=== PATIENT | female | born 1995 | race Caucasian/White ===

== ENCOUNTER 2016-05-25 22:47 | Observation (INO) ==
[2016-05-25 23:24] LABS: Bilirubin,Urine Negative (Negative); Blood,Urine Negative (Negative); Clarity,Urine Clear (Clear); Color,Urine Yellow (Yellow); Glucose,Urine (UA) Normal (Normal); Ketones,Urine Negative (Negative); Leukocyte Esterase,Urine Trace (Negative); Nitrite,Urine Negative (Negative); PH,Urine 6.5 pH Units (5.0-8.0); Protein,Urine 100 mg/dL (Neg-Trace); Urobilinogen,Urine Normal (Normal)
[2016-05-25 23:25] LABS: Bacteria,Urine Few per hpf (None-Few); Hyaline Casts,Urine None Seen per lpf (None-Few); Squamous Epithelial Cell,Urine Many per lpf (None-Few)
--- NOTE | 2016-05-30 15:23 | Discharge Summary ---
Date of Encounter: 05/25/16 Time of Encounter: 22:45 - Discharge Diagnosis (1) False labor before 37 completed weeks of gestation Priority: Primary Status: Ruled-out Qualifiers: Trimester: third trimester Qualified Code(s): O47.03 - False labor before 37 completed weeks of gestation, third trimester (2) 36 weeks gestation of Priority: Secondary Status: Acute - Discharge Medications Home Medications: Vit Calc,Iron,Folic [ Vitamins] 1 each PO DAILY #30 tablet [Rx] Ibuprofen [Motrin] 600 mg PO Q6HR PRN #40 tablet 05/27/16 [Rx] Allergies/Adverse Reactions: Allergies azithromycin [From Zithromax] Allergy (Verified 05/25/16 22:56) Rash Data Procedures and tests throughout hospitalization: Laboratory Tests 05/25/16 23:10 Urine Color Yellow Urine Clarity Clear Urine pH 6.5 Ur Specific [place] 1.020 Urine Protein 100 H Urine Glucose (UA) Normal Urine Ketones Negative Urine Blood Negative Urine Nitrite Negative Urine Bilirubin Negative Urine Urobilinogen Normal Ur Leukocyte Esterase Trace H Urine Microscopic RBC 5-15 H Urine Microscopic WBC 5-15 H Ur Squamous Epith Cells Many H Urine Bacteria Few Hyaline Casts None Seen Ur Culture Indicated? YES A Date of admission: 05/25/16 22:47 Primary care physician: Ricardo Beauchamp - Patient Status Disposition: Home, Self-Care Condition: Good Functional capacity at discharge: independent ambulation Overall status at discharge: patient is progressing back to baseline - Discharge Instructions Follow Up With: Calvin Chung DO [Primary Care Provider] - - Diet and Activity Activity: increase activity as tolerated Diet: advance to your usual diet Hospital Course ATMOSPHERIC DRIER TENDER Time Attestation: Total time spent providing and/or coordinating discharge services: Exam - Constitutional Vitals: per nurses - VTE Reasons for not Prescribing Prophylaxis: Treatment not Indicated - Low risk for VTE - Attending Attestation dmitriy regan md facog
== END 2016-05-26 00:19 | disposition home or self-care (01) ==
LOC: 1NENULAB
PROVIDERS: ADMIT Obstetrics & Gynecology; ATTEND Obstetrics & Gynecology

== ENCOUNTER 2016-05-26 14:07 | Inpatient (IN) ==
[~2016-05-26 14:07] MED LIST: Famotidine 20 MG/2 ML VIAL IVP PRN; Naloxone 0.4 MG/ML INJ IVP PRN; Ondansetron 4 MG/2 ML VIAL IVP PRN
[2016-05-26] MEDS ORDERED: *HR* Nalbuphine 20 MG/ML AMPUL IVP PRN ×2 (14:09→16:50)
--- NOTE | 2016-05-26 14:17 | OB/GYN History & Physical ---
Date of Encounter: 05/26/16 Time of Encounter: 14:11 Assessment and Plan (1) Rupture of membranes with clear amniotic fluid Current visit: Yes Status: Acute - Monitor normal labor progression. (2) 36 weeks gestation of Current visit: Yes Status: Acute History of Present Illness HPI: Ms. Piña is a 20 year old female who is at 36 weeks and 5 days presenting for possible rupture of membranes today around 11:00. She is GBS negative. She denies any complications. She was evaluated here last night and found to have not ruptured. She states today she got out of bed and had a large gush of fluid around 11 AM. She has had contractions approximately every 5-8 minutes that lasts about a minute and a half since this episode at 11. Today her ferning test is positive as is the nitrazine test. She does have pooling of fluid that is slightly blood tinged but mostly clear in her vaginal vault. Past Med Surg Social Fam HX - Past Medical History Source: patient Medical history: no medical history Psychiatric history: no psych history - Past Surgical History Surgical History: other (tonsils) - Social History Smoking Status: Former smoker Smokeless Tobacco Status: No Alcohol use: none Drug use: none - Family History Mother Adopted: No Living Status: Still Living Hx Family Cardiac Disorders: Yes (HTN) Hx Family Respiratory Disorders: Yes (ARDS,) Hx Family Cancer: Yes (jawbone CA) Obstetrical History - Pregnancies : 1 Para: 0 Medications and Allergies Vit Calc,Iron,Folic [ Vitamins] 1 each PO DAILY #30 tablet [Rx] Allergies azithromycin [From Zithromax] Allergy (Verified 05/25/16 22:56) Rash Review of System OB All systems PM: reviewed and no additional remarkable complaints except as stated - Constitutional Constitutional ROS IM: no chills, no fever(s), no headache(s) - Cardiovascular Cardiovascular: pedal edema (Mild after standing during the day.), no chest pain , no chest pain at rest, no chest pain with activity, no dyspnea, no lightheadedness, no syncope - Respiratory Respiratory: no cough, no dyspnea, no chest congestion - Gastrointestinal Gastrointestinal: no abdominal pain, no constipation, no cramping, no diarrhea, no nausea, no vomiting - Genitourinary Genitourinary: amenorrhea, vaginal discharge (Clear fluid), no difficulty urinating, no flank pain, no vaginal odor - Integumentary Integumentary: no rash - Neurological Nerological: no dizziness, no headache(s), no loss of vision, no syncope, no vertigo Exam - Constitutional Constitutional: well developed, well nourished, no acute distress, average body habitus - HEENT HEENT: PERRL, Normocephaly, Mucus Membranes Moist - Neck Neck exam: full ROM, trachea midline - Lungs Respiratory exam: CTAB - Cardiovascular Cardiovascular exam: RRR - Abdomen Abdomen: Present: bowel sounds normal, gravid, non tender - Extremities Extremities exam: normal capillary refill, pedal edema (Moderate) Deep Tendon Reflex Grade: 2+ Normal - Vagina Vagina: Present: normal moisture - Cervix Cervix: Present: discharge (Clear with slight blood-tinged.). Absent: lesion Dilation: 3 Effacement: 70 Station: -2 - Uterus Uterus exam: Present: normal size, normal contour - Anus/Rectum Anus/Rectum: Present: normal perianal skin Results Result Diagrams: 05/26/16 14:25 05/26/16 14:25 All other labs normal. - VTE Reasons for not Prescribing Prophylaxis: Treatment not Indicated - Low risk for VTE - Attending Attestation I examined this patient and my medical decision-making was reviewed with the Resident Physician. I agree with the documented findings, disposition and treatment plan as described except and have included my edits in the above document. Roma Be DO
[2016-05-26 14:47] LABS: Basophils % 0.2 %; Eosinophils # 0.2 K/mcL (0.0-0.6); Eosinophils % 1.5 %; Hematocrit 39.6 % (35.3-44.9); Hemoglobin 13.5 g/dL (11.5-15.4); Immature Granulocytes % 0.5 % (0-4); Lymphocytes # 1.2 K/mcL (0.6-4.6); Lymphocytes % 7.9 %; Mean Corpuscular HGB Conc 34.1 g/dL (31.6-35.5); Mean Corpuscular Hemoglobin 30.1 pg (28.0-33.3); Mean Corpuscular Volume 88.4 fL (83.0-100.0); Mean Platelet Volume 10.5 fL (9.4-12.4); Monocytes % 6.5 %; Neutrophils # 12.7 K/mcL (1.6-8.9); Platelet Count 267 K/mcL (140-400); Red Blood Count 4.48 M/mcL (3.82-4.97); Red Cell Distribution Width 13.6 % (11.5-14.5); Segmented Neutrophils % 83.4 %
[2016-05-26 14:59] LABS: Alanine Aminotransferase 24 Units/L (0-55); Aspartate Amino Transferase 28 Units/L (5-34); BUN/Creatinine Ratio 12 (6-26); Blood Urea Nitrogen 8 mg/dL (7-20); Lactate Dehydrogenase 207 Units/L (159-327); Uric Acid 6.4 mg/dL (2.6-6.0); eGFR For African Americans > 60 (> 60); eGFR For Non-African Americans > 60 (> 60)
[2016-05-26] MEDS ORDERED: miSOPROStol 25 MCG TABLET PO PRN (15:13)
[2016-05-26] MEDS: Ringers Solution, Lactated 1,000 ML IVC SCH ×2 (18:28→20:39)
--- NOTE | 2016-05-26 18:33 | Anesthesia Evaluation PreOp ---
Date of Encounter: 05/26/16 Time of Encounter: 18:30 - Past History Planned Operation: labor epidural Cardiac History: Denies any Significant Hx Pulmonary History: Denies Any Significant HX BLACKJACK DEALER History: Denies Any Significant HX Other Medical History: Denies Any Significant HX Anesthesia History: No Prior Anesthetic Complications, Past Anesthesia (T&A) : Yes Alcohol Use: none Drug use: none Medications and Allergies Vit Calc,Iron,Folic [ Vitamins] 1 each PO DAILY #30 tablet [Rx] Allergies azithromycin [From Zithromax] Allergy (Verified 05/25/16 22:56) Rash - Meds/Allergy Pre-op Review Medications Reviewed: Yes Allergies Reviewed: Yes Beta Blockers on Current Med List: No Anesthesia Results - Labs 05/26/16 14:25 05/26/16 14:25 Anesthesia Exam vss Height: 5'4" Weight: 103 kg NPO (# of Hours): 8 Pain Scale: 10 Pain Scale Used: Numeric (1 - 10) - HEENT Pupil (Motor): Pupils equal, EOMI Mallampati: III Teeth: Normal Oral Opening: Greater than 3 - BLACKJACK DEALER LOC: Oriented BLACKJACK DEALER Motor: Normal RUE, Normal LUE, Normal RLE, Normal LLE, Normal Face BLACKJACK DEALER Sensory: Normal: RUE, LUE, RLE, LLE, Face - Cardiac Rhythm: Regular Murmur: None - Pulmonary Breath Sounds: bilateral Clear Respiratory Effort: Symmetrical Anesthesia Assess/Plan ASA Score: 2 Modified Escobar Scale for Level of Consciousness: Cooperative, oriented, and tranquil Anesthetic Plan: Regional Monitoring Plan: Standard Monitors
[2016-05-26] MEDS ORDERED: Bupivacaine-MPF 0.25% 10 ML VIAL EP ONE (18:40)
[2016-05-26] MEDS ORDERED: *HR* FentaNYL (PF) 100 MCG/2 ML VIAL EP ONE (18:40)
[2016-05-26] MEDS ORDERED: Epidural Premix (fent/bupiv) 110 ML EP ONE (18:43)
[2016-05-26] MEDS ORDERED: *HR* FentaNYL (PF) 100 MCG/2 ML VIAL ONE (18:43)
[2016-05-26] MEDS ORDERED: Bupivacaine-MPF 0.25% 10 ML VIAL ONE (18:43)
[2016-05-26] MEDS ORDERED: Epidural Premix (fent/bupiv) 110 ML EP SCH (18:45)
--- NOTE | 2016-05-26 19:46 | Anesthesia Procedures ---
Date of Encounter: 05/26/16 Time of Encounter: 19:08 Procedures: Anesthesia - Epidural/Spinal Patient ID/Chart reviewed: Yes Patient examined: Yes OB Eval: Gestational age: 36 OB Eval: : 1 OB Eval: Hx Para: 0 OB Eval: Dilated at (cm): 4 OB Eval: Contractions: Non-stressed pattern Consent Obtained: Yes Supplemental Oxygen: None/Room Air Site Prep: Aseptic Technique, Sterile prep and drape, Povidone-Iodine 1% Patient position: upright Local Anesthetic: Lidocaine 1% Amount of Local Anesthetic used: 3 Touhy Needle Gauge: 18 Touhy Needle Depth (cm): 6 Catheter Depth at Skin (cm): 18 Test Dose (1.5% Lido + Epi): Volume given (mls): 3 Test Dose Result: Negative Loading Dose: 0.25% Marcaine (mls): 8 Loading Dose: Fentanyl (mcg): 100 Loading Dose Administered: Thru Catheter Infusion Med: 0.125% Bupivacaine w/ 2 mcg/ml Fentanyl Infusion Rate (mls/hr): [address]: Tegaderm, Tape Interspace Used: L3-L4 Loss of Resistance (SHAYY): Yes Blood: No CSF: No Paresthesia: No Vitals + FHT's: 3 Vital Signs Time 1909 1914 1919 1924 1929 1934 1939 BP 142/80 198/105 196/84 162/71 165/73 145/64 148/63 Pulse 128 144 151 150 140 [id number] 147 FHTs 130 130 130 130 130 140 140
[2016-05-26] MEDS ORDERED: Acetaminophen 325 MG TABLET PO ONE (20:08)
--- NOTE | 2016-05-26 20:32 | OB/GYN Progress Note ---
Date of Encounter: 05/26/16 Time of Encounter: 20:28 - Assessment and Plan (1) tachycardia during labor Current Visit: Yes Status: Acute Maternal tachycardia also. Maternal temp is 99. Tylenol has been ordered. Patient currently SROM for 9.5 hours. No sign of infection. Maternal O2 supplied and fluid bolus. FSE placed without difficulty because maternal pulse was also 160 initially following the epidural. Continue with close monitoring in anticipation of a vaginal delivery. Subjective - Subjective Interval history: Patient is now comfortable, but anxious after the epidural. She denies any chills or pain at this time. Antepartum ROS: movement normal, no new complaints Objective - Vital Signs Vital Signs: Intake and Output 05/26/16 05/26/16 05/26/16 07:59 15:59 23:59 Output Total 75 / 75 Balance -75 / -75 Output: Emesis 75 / 75 Other: Weight 103.1 kg Patient Weight 05/26/16 23:59 Weight 103.1 kg - Exam FHR: category 2 FHR comments: FHT's baseline is currenlty 162 with 10x10 accel @2023. Contractions irregular. Abdomen: Present: soft. Absent: tenderness Cervical dilation: 8 Cervix effacement: 90 station: -1 - Labs Labs: Abnormal lab results WBC 15.2 K/mcL (4.3-11.1) H 05/26/16 14:25 Neutrophils # 12.7 K/mcL (1.6-8.9) H 05/26/16 14:25 Uric Acid 6.4 mg/dL (2.6-6.0) H 05/26/16 14:25
[2016-05-26] MEDS ORDERED: Oxytocin 20 units/ LR 1000 mL 20 UNIT/1,000 ML BAG IVC ONE (21:45)
--- NOTE | 2016-05-26 22:57 | OB/GYN Procedure Note ---
Delivery - Delivery Date: 05/26/16 Provider: Roma Be Intrapartum events: none Delivery induction: none Delivery monitor: external FHT, external uterine, internal FHT Anesthesia: epidural Estimated Blood Loss: 450 - (s) A Delivery Date: 05/26/16 Infant Delivery Time: 22:39 Presentation: vertex Position: MAUREEN Route of delivery: Gender: Female Viability: Viable Pounds: 6 Ounces: 14 Weight Gram: 3.105 kg at 1 minute: 8 at 5 mins: 9 Shoulder Dystocia: not encountered Specimens collected: cord blood Placenta: spontaneous Cord: nuchal cord, 3 umbilical vessels, nuchal reduced - Repair Episiotomy: none Laceration Description: Perineal - 2nd Degree - Complications Delivery complications: other (category 2 tracing, tachycardia) Delivery comments: Called to room with patient complete and +1 station. Under maternal effort she delivered a viable female weighing 6 lbs. 14 oz. and Apgars 8 and 9 at one and 5 minutes respectively over second-degree perineal laceration. Following delivery the was bulb suctioned. Loose nuchal cord was noted and reduced. The remainder of the delivered with maternal effort. Infant was placed on mom's abdomen. Allowing 1 minute cessation the cord was then clamped and cut. Placenta delivered spontaneously, complete, and intact with a three-vessel cord. Second-degree perineal laceration was repaired using 0 Vicryl in standard fashion. Hemostasis was assured. Sponge and needle counts are correct at the end of the procedure. Delivering physician is Iona Quiroga DO, PGY [address] assisting. - Disposition Mom disposition: stable in LDR disposition: stable in LDR
[2016-05-27] MEDS ORDERED: Oxytocin 20 units/ LR 1000 mL 20 UNIT/1,000 ML BAG IVC ONE ×2 (01:17→01:37)
[2016-05-27] MEDS ORDERED: Acetaminophen 325 MG TABLET PO PRN (01:37)
[2016-05-27] MEDS ORDERED: Oxytocin 20 units/ LR 1000 mL 20 UNIT/1,000 ML BAG IV SCH (01:37)
[2016-05-27] MEDS: Ibuprofen 600 MG TABLET PO PRN ×2 (02:46→20:05)
[2016-05-27 06:10] LABS: Basophils % 0.1 %; Hematocrit 32.5 % (35.3-44.9); Immature Granulocytes % 0.7 % (0-4); Lymphocytes % 4.6 %; Mean Corpuscular HGB Conc 32.9 g/dL (31.6-35.5); Mean Corpuscular Hemoglobin 29.6 pg (28.0-33.3); Mean Corpuscular Volume 89.8 fL (83.0-100.0); Mean Platelet Volume 10.6 fL (9.4-12.4); Monocytes # 1.3 K/mcL (0.0-1.3); Monocytes % 6.5 %; Neutrophils # 18.2 K/mcL (1.6-8.9); Platelet Count 224 K/mcL (140-400); Red Blood Count 3.62 M/mcL (3.82-4.97); Red Cell Distribution Width 13.7 % (11.5-14.5); Segmented Neutrophils % 88.1 %
[2016-05-27 06:30] LABS: Hemoglobin 10.7 g/dL (11.5-15.4)
[2016-05-27] MEDS: Prenatal Vit/FA 1 EACH TABLET PO SCH (07:53)
[2016-05-27] MEDS ORDERED: ceFAZolin 2,000 MG in D5% in Water 100 ML IVPB SCH ×2 (08:00)
--- NOTE | 2016-05-27 10:52 | Discharge Summary ---
Date of Encounter: 05/27/16 Time of Encounter: 10:51 - Discharge Diagnosis (1) Vaginal discharge during in third trimester Priority: Primary Status: Acute Comments: Doing well, had fever shortly after delivery, this has since resolved. - Discharge Medications Prescriptions: Ibuprofen [Motrin] 600 mg PO Q6HR PRN #40 tablet PRN Reason: Cramping Home Medications: Vit Calc,Iron,Folic [ Vitamins] 1 each PO DAILY #30 tablet [Rx] Ibuprofen [Motrin] 600 mg PO Q6HR PRN #40 tablet 05/27/16 [Rx] Allergies/Adverse Reactions: Allergies azithromycin [From Zithromax] Allergy (Verified 05/25/16 22:56) Rash Data Procedures and tests throughout hospitalization: Laboratory Tests 05/26/16 05/26/16 05/27/16 14:25 14:25 05:11 WBC 15.2 H 20.7 H RBC 4.48 3.62 L Hgb 13.5 10.7 L D Hct 39.6 32.5 L MCV 88.4 89.8 MCH 30.1 29.6 MCHC 34.1 32.9 RDW 13.6 13.7 Plt Count 267 224 MPV 10.5 10.6 Immature Gran % 0.5 0.7 Seg Neutrophils % 83.4 88.1 Lymphocytes % 7.9 4.6 Monocytes % 6.5 6.5 Eosinophils % 1.5 0.0 Basophils % 0.2 0.1 Neutrophils # 12.7 H 18.2 H Lymphocytes # 1.2 1.0 Monocytes # 1.0 1.3 Eosinophils # 0.2 0.0 Basophils # 0.0 0.0 BUN 8 Creatinine 0.65 Est GFR ( Amer) > 60 Est GFR (Non-Af Amer) > 60 BUN/Creatinine Ratio 12 Uric Acid 6.4 H AST 28 ALT 24 Lactate Dehydrogenase 207 Labs on day of discharge: Labs from last 24 hours 05/27/16 05/26/16 05/26/16 05:11 14:25 14:25 WBC 20.7 H 15.2 H RBC 3.62 L 4.48 Hgb 10.7 L D 13.5 Hct 32.5 L 39.6 MCV 89.8 88.4 MCH 29.6 30.1 MCHC 32.9 34.1 RDW 13.7 13.6 Plt Count 224 267 MPV 10.6 10.5 Immature Gran % 0.7 0.5 Seg Neutrophils % 88.1 83.4 Lymphocytes % 4.6 7.9 Monocytes % 6.5 6.5 Eosinophils % 0.0 1.5 Basophils % 0.1 0.2 Neutrophils # 18.2 H 12.7 H Lymphocytes # 1.0 1.2 Monocytes # 1.3 1.0 Eosinophils # 0.0 0.2 Basophils # 0.0 0.0 BUN 8 Creatinine 0.65 Est GFR ( Amer) > 60 Est GFR (Non-Af Amer) > 60 BUN/Creatinine Ratio 12 Uric Acid 6.4 H AST 28 ALT 24 Lactate Dehydrogenase 207 - Impressions Doing well, without c/o. Abd NT, fundus firm. Appropriate lochia. Date of admission: 05/26/16 14:07 Primary care physician: Ricardo Beauchamp Consults: 05/27/16 01:37 Consult to Home School Teacher [CONS] Routine Comment: Vaginal delivery, consult needed - Patient Status Disposition: Home, Self-Care Condition: Good Functional capacity at discharge: independent ambulation - Discharge Instructions Follow Up With: Eduardo Yepez MD [Partnered Physician] - - Diet and Activity Activity: increase activity as tolerated Diet: advance to your usual diet Hospital Course APPLICATION SECURITY ENGINEER Time Attestation: Total time spent providing and/or coordinating discharge services: Exam - Constitutional Vitals: Temp Pulse Resp BP Pulse Ox 97.7 F 104 16 132/76 98 05/27/16 08:10 05/27/16 08:10 05/27/16 08:10 05/27/16 08:10 05/27/16 08:10 General appearance IM: A&O X 3 - Respiratory Respiratory exam: Present: CTAB - Cardiovascular Cardiovascular exam IM: Present: RRR - GI/Abdominal GI/Abdominal exam IM: normal bowel sounds - External exam: ecchymosis Uterine Tone: Firm Uterus Position: 3 Fingers Above Umbilicus - Extremities Exam Extremities exam IM: Present: full ROM - Neurological Exam Neurological exam: oriented X3 - VTE Reasons for not Prescribing Prophylaxis: Treatment not Indicated - Low risk for VTE
[2016-05-28] MEDS: Prenatal Vit/FA 1 EACH TABLET PO SCH (08:14)
[2016-05-28] MEDS: Ibuprofen 600 MG TABLET PO PRN (08:14)
[2016-05-28 09:32] VITALS: BP 120/67
--- NOTE | 2016-05-28 09:57 | Discharge Summary ---
Date of Encounter: 05/28/16 Time of Encounter: 09:55 - Discharge Diagnosis (1) Rupture of membranes with clear amniotic fluid Priority: Primary Status: Acute (2) 36 weeks gestation of Priority: Secondary Status: Acute (3) Vaginal delivery Priority: Primary Status: Acute - Discharge Medications Prescriptions: Ibuprofen [Motrin] 600 mg PO Q6HR PRN #40 tablet PRN Reason: Cramping Home Medications: Vit Calc,Iron,Folic [ Vitamins] 1 each PO DAILY #30 tablet [Rx] Ibuprofen [Motrin] 600 mg PO Q6HR PRN #40 tablet 05/27/16 [Rx] Allergies/Adverse Reactions: Allergies azithromycin [From Zithromax] Allergy (Verified 05/25/16 22:56) Rash Data Procedures and tests throughout hospitalization: Laboratory Tests 05/26/16 05/26/16 05/27/16 14:25 14:25 05:11 WBC 15.2 H 20.7 H RBC 4.48 3.62 L Hgb 13.5 10.7 L D Hct 39.6 32.5 L MCV 88.4 89.8 MCH 30.1 29.6 MCHC 34.1 32.9 RDW 13.6 13.7 Plt Count 267 224 MPV 10.5 10.6 Immature Gran % 0.5 0.7 Seg Neutrophils % 83.4 88.1 Lymphocytes % 7.9 4.6 Monocytes % 6.5 6.5 Eosinophils % 1.5 0.0 Basophils % 0.2 0.1 Neutrophils # 12.7 H 18.2 H Lymphocytes # 1.2 1.0 Monocytes # 1.0 1.3 Eosinophils # 0.2 0.0 Basophils # 0.0 0.0 BUN 8 Creatinine 0.65 Est GFR ( Amer) > 60 Est GFR (Non-Af Amer) > 60 BUN/Creatinine Ratio 12 Uric Acid 6.4 H AST 28 ALT 24 Lactate Dehydrogenase 207 Labs on day of discharge: Preliminary micro results at discharge 05/26/16 23:00 Wound Culture - Preliminary Other-Specify in Comments No growth. Date of admission: 05/26/16 14:07 Primary care physician: Ricardo Beauchamp Consults: 05/27/16 01:37 Consult to Stock Buyer [CONS] Routine Comment: Vaginal delivery, consult needed Discharging clinician: Roma Be Anticipated date of discharge: 05/28/16 - Patient Status Disposition: Home, Self-Care Condition: Good Functional capacity at discharge: independent ambulation Overall status at discharge: patient is progressing back to baseline - Discharge Instructions Follow Up With: Eduardo Yepez MD [Partnered Physician] - Additional Instructions: Perineal Care: Always wipe front to back Change your pad frequently Use your linnea bottle with warm water and spray front to back Do not douche, use tampons, have sexual intercourse or put anything in your vagina for 4-6 weeks after delivery Bleeding: Vaginal bleeding can last up to 6 weeks Your menstrual period may return as early as 6 weeks after you are discharged from the hospital Ronald/Stitches Care: Vaginal Delivery Vaginal stitches will dissolve within 4-6 weeks Follow perineal care instructions Care Stitches will dissolve on their own If you have ronald, they will need to be removed in the doctors office within 5-7 days. You may shower with stitches or ronald Drip plan or soapy water over the incision to clean. Pat dry gently with a clean towel. Make sure you completely dry under the skin folds DO NOT USE powders, lotions, rubbing alcohol or hydrogen peroxide on or around your incision. This will slow your wound healing It is normal to have soreness, burning, tingling, itchiness and/or numbness as your incision heals Activity: Rest frequently Do not lift anything heavier than a gallon of milk, up to 10-15 pounds No driving for 1-2 weeks for Vaginal delivery No driving for 2-4 weeks for delivery Take stairs slowly, one at a time Gradually increase your daily activity until you are back to your normal routine Do not exercise until you have had your follow-up appointment Bathing: Take a shower daily Do not take a tub bath for the first 4 weeks Diet: Drink plenty of water and fruit juices Eat a well-balanced diet with foods high in fiber such as fruits and vegetables Depression: Your hormones have a major impact on your feelings and emotions. Hormone imbalance may cause changes in your mood, creating unfamiliar thoughts and actions. Support is available to help you understand and cope with these feelings and mood changes. If you answer yes to any of the following questions, please call your health care provider: Are you having trouble sleeping? Are you feeling isolated? Have you lost your appetite? Are you having thoughts of hurting yourself or others? WARNING SIGNS: Heavy bleeding from the vagina (blood is bright red and soaks a sanitary pad in an hour or less.) Passing a blood clot larger than your fist Discharge from the vagina that has a bad odor Temperature over 100.4 F, or if you feel cold and have chills An episiotomy site that is warm, swollen or oozing. Use a mirror if needed Urination (pee) that is painful, very red and swollen or leaking fluid An incision that is painful, very red and swollen and leaking fluid An incision that has come open Breasts that are painful or full with flu like symptoms Redness, warmth or swelling in the calf of your leg Trouble breathing, dizziness, visual disturbance or faintness *Notify your health care provider immediately or go to the nearest Emergency Room if you experience any of the above signs.* To contact the nurses station 24 hours a day, For non-urgent, routine questions, please call the office at - Diet and Activity Activity: increase activity as tolerated Diet: advance to your usual diet Hospital Course Reason for admission: active labor, rupture of membranes Delivery: Episiotomy: none Other procedures: none complications: none Discharge diagnosis: delivery baby: female Time Attestation: Total time spent providing and/or coordinating discharge services: Time Spent: Less than 30 minutes Exam - Constitutional Vitals: Temp Pulse Resp BP Pulse Ox 98.5 F 132 16 120/67 98 05/28/16 09:40 05/28/16 08:00 05/28/16 08:00 05/28/16 08:00 05/28/16 08:00 General appearance IM: A&O X 3 - Respiratory Respiratory exam: Present: CTAB. Absent: respiratory distress - Cardiovascular Cardiovascular exam IM: Present: RRR. Absent: irregular rhythm - GI/Abdominal GI/Abdominal exam IM: normal bowel sounds - Rectal Rectal exam: deferred - Uterine Tone: Firm Uterus Position: At Umbilicus - Extremities Exam Extremities exam IM: Absent: calf tenderness
== END 2016-05-28 11:22 | disposition home or self-care (01) | DRG 560 ==
LOC: 1NENULAB → 1NENUOBS 05-27 01:28
PROVIDERS: ADMIT Obstetrics & Gynecology; ATTEND Obstetrics & Gynecology

== ENCOUNTER 2017-04-30 14:54 | Observation (INO) ==
[2017-04-30 15:31] LABS: Bilirubin,Urine Negative (Negative); Blood,Urine Negative (Negative); Clarity,Urine Clear (Clear); Color,Urine Yellow (Yellow); Glucose,Urine (UA) Normal (Normal); Ketones,Urine Negative (Negative); Leukocyte Esterase,Urine Negative (Negative); Nitrite,Urine Negative (Negative); PH,Urine 6.5 pH Units (5.0-8.0); Protein,Urine Negative (Neg-Trace); Specific Gravity,Urine 1.026 (1.010-1.025); Urobilinogen,Urine Normal (Normal)
[2017-04-30 15:37] LABS: Amphetamine Screen,Urine Negative ng/mL (Cutoff=1000); Barbiturate Screen,Urine Negative ng/mL (Cutoff=200); Benzodiazepines Screen,Urine Negative ng/mL (Cutoff=200); Cannabinoid Screen,Urine Negative ng/mL (Cutoff = 50); Cocaine Screen,Urine Negative ng/mL (Cutoff= 300); Opiate Screen,Urine Negative ng/mL (Cutoff=300); Phencyclidine Screen,Urine Negative ng/mL (Cutoff=25)
--- NOTE | 2017-04-30 16:26 | OB/GYN Progress Note ---
Date of Encounter: 04/30/17 Time of Encounter: 16:00 - Assessment and Plan (1) and not yet delivered in third trimester Current Visit: Yes Status: Acute (2) 23 weeks gestation of Current Visit: Yes Status: Acute (3) uterine contractions in second trimester, antepartum Current Visit: Yes Status: Acute Labor precautions and kick counts given to the patient she will follow-up in the office Subjective - Subjective Interval history: patient is a 21 yr old at 23 3/7 wks who presented for evaluation for contractions and vaginal pressure. She states she woke up at approximately 9: 00 this morning having cramping every 10-15 minutes lasting about 60 seconds with pressure the top of the vagina. She was concerned because she delivered a baby at 36 weeks. She denied dysuria urgency frequency and is not complaining of any vaginal discharge. Did have the patient come in for evaluation and contractions are noted on the monitor and urinalysis was negative. Baby was in the 140s 150s reassuring for 23 weeks. Antepartum ROS: contractions Objective - Vital Signs Vital Signs: Intake and Output 04/30/17 04/30/17 04/30/17 07:59 15:59 23:59 Other: Weight 96.3 kg Patient Weight 04/30/17 23:59 Weight 96.3 kg - Exam FHR: category 1 FHR comments: heart tones 140s 150s reassuring no contractions Abdomen: Present: normal appearance, gravid Uterus: Present: firm - Labs Labs: Abnormal lab results Ur Specific [place] 1.026 (1.010-1.025) H 04/30/17 15:18
== END 2017-04-30 15:54 | disposition home or self-care (01) ==
LOC: 1NENULAB
PROVIDERS: ADMIT Obstetrics & Gynecology; ATTEND Obstetrics & Gynecology

== ENCOUNTER 2017-05-02 14:41 | Observation (INO) ==
[2017-05-02 15:38] LABS: Bilirubin,Urine Small (Negative); Blood,Urine Negative (Negative); Clarity,Urine Cloudy (Clear); Color,Urine Dark Yellow (Yellow); Glucose,Urine (UA) Normal (Normal); Ketones,Urine Trace mg/dL (Negative); Leukocyte Esterase,Urine Trace (Negative); Nitrite,Urine Negative (Negative); Protein,Urine 30 mg/dL (Neg-Trace); Urobilinogen,Urine Normal (Normal)
[2017-05-02 15:40] LABS: Bacteria,Urine Few per hpf (None-Few); Squamous Epithelial Cell,Urine Many per lpf (None-Few)
[2017-05-02 15:41] LABS: Amphetamine Screen,Urine Negative ng/mL (Cutoff=1000); Barbiturate Screen,Urine Negative ng/mL (Cutoff=200); Benzodiazepines Screen,Urine Negative ng/mL (Cutoff=200); Cannabinoid Screen,Urine Negative ng/mL (Cutoff = 50); Cocaine Screen,Urine Negative ng/mL (Cutoff= 300); Opiate Screen,Urine Negative ng/mL (Cutoff=300); Phencyclidine Screen,Urine Negative ng/mL (Cutoff=25)
[2017-05-02 16:08] LABS: Hyaline Casts,Urine None Seen per lpf (None-Few); Mucus,Urine Few (Few)
[2017-05-02] MEDS ORDERED: Ondansetron ODT 4 MG TAB.RAPDIS SL ONE (16:11)
--- NOTE | 2017-05-02 16:11 | OB/GYN Progress Note ---
Date of Encounter: 05/02/17 Time of Encounter: 16:06 - Assessment and Plan (1) Cramping affecting , antepartum Current Visit: Yes Status: Acute Rare contractions on toco. Cramping likely due to dehydration. CL reassuring. Pt does have a history of delivery. Will start progesterone. Push fluids. Zofran for nausea. Discharge home once tolerating PO fluids. labor precautions stressed. Pt to follow-up with Dr. Varela for repeat CL US and routine care. POC discussed with Dr. Fragoso (2) Dehydration during Current Visit: Yes Status: Acute (3) 23 weeks gestation of Current Visit: No Status: Acute Subjective - Subjective Interval history: 21 year-old presenting at 23 weeks gestation with c/o abdominal cramping. She denies leaking or bleeding. Good FM. She does report some nausea with occassional vomiting. She has had trouble keeping things down for the last few days. No other complaints. Antepartum ROS: movement normal, contractions (cramping, unsure if having contractions), no loss of fluid, no vaginal bleeding Objective - Vital Signs Vital Signs: Intake and Output 05/02/17 05/02/17 05/02/17 07:59 15:59 23:59 Other: Weight 95.4 kg Patient Weight 05/02/17 23:59 Weight 95.4 kg - Exam FHR comments: FHT reassuring for GA Auscultation: bilateral: normal Abdomen: Present: soft, gravid Uterus: Present: normal. Absent: tenderness Comments: Cervical length on US: 6cm (images reviewed by Dr. Fragoso) - Labs Labs: Abnormal lab results Urine Clarity Cloudy (Clear) A 05/02/17 15:20 Ur Specific [place] 1.030 (1.010-1.025) H 05/02/17 15:20 Urine Protein 30 mg/dL (Neg-Trace) H 05/02/17 15:20 Urine Ketones Trace mg/dL (Negative) H 05/02/17 15:20 Urine Bilirubin Small (Negative) H 05/02/17 15:20 Ur Leukocyte Esterase Trace (Negative) H 05/02/17 15:20
== END 2017-05-02 17:16 | disposition home or self-care (01) ==
LOC: 1NENULAB
PROVIDERS: ADMIT Obstetrics & Gynecology; ATTEND Obstetrics & Gynecology

== ENCOUNTER 2017-07-20 22:53 | Observation (INO) ==
[2017-07-20 23:34] LABS: Bilirubin,Urine Negative (Negative); Blood,Urine Negative (Negative); Clarity,Urine Cloudy (Clear); Color,Urine Yellow (Yellow); Glucose,Urine (UA) Normal (Normal); Ketones,Urine Negative (Negative); Leukocyte Esterase,Urine Trace (Negative); Nitrite,Urine Negative (Negative); Protein,Urine Trace mg/dL (Neg-Trace); Specific Gravity,Urine 1.018 (1.010-1.025); Urobilinogen,Urine Normal (Normal)
[2017-07-20 23:36] LABS: Bacteria,Urine Few per hpf (None-Few); Hyaline Casts,Urine None Seen per lpf (None-Few); RBC,Urine 0-3 per hpf (0-3); Squamous Epithelial Cell,Urine Many per lpf (None-Few)
[2017-07-21] MEDS ORDERED: hydrOXYzine pamoate 25 MG CAPSULE PO ONE (00:37)
--- NOTE | 2017-07-21 00:42 | OB/GYN Progress Note ---
Date of Encounter: 07/21/17 Time of Encounter: 00:38 - Assessment and Plan (1) 35 weeks gestation of Current Visit: Yes Status: Acute (2) NST (non-stress test) reactive on surveillance Current Visit: Yes Status: Acute (3) uterine contractions in third trimester, antepartum Current Visit: Yes Status: Acute SVE unchanged from admission Vistaril for rest 50mg po x 1 dose tonight Increase hydration Discharge home with partner driving (4) History of delivery, currently in third trimester Current Visit: Yes Status: Acute Subjective - Subjective Principal diagnosis: contractions Interval history: Ms. Galvan is a 21yo at 35 weeks + 0 days gestation who presents with c/o contractions starting today and increasing to every 4 minutes. Pt reports last intercourse was within the past 48 hours. Endorses good FM and denies LOF, vaginal bleeding, MERINO, blurry vision. History of one late delivery at [address] Varela for the duration of her . Antepartum ROS: movement normal, contractions, no loss of fluid, no vaginal bleeding Objective - Vital Signs Vital Signs: Intake and Output 07/20/17 07/20/17 07/21/17 15:59 23:59 07:59 Other: Weight 104.5 kg - Exam FHR: auscultation normal, category 1 FHR comments: Baseline 140 Moderate variability Accelerations present 15x15 Decelerations absent FHR category I [place] contractions every 4 minutes and palpate moderate Auscultation: bilateral: normal Abdomen: Present: normal appearance, soft, gravid Uterus: Present: normal, firm Cervical dilation: 1-2 Cervix effacement: 70 station: -3 - Labs Labs: Abnormal lab results Urine Clarity Cloudy (Clear) A 07/20/17 23:00 Ur Leukocyte Esterase Trace (Negative) H 07/20/17 23:00 Urine Microscopic WBC 3-5 per hpf (0-3) H 07/20/17 23:00 Ur Squamous Epith Cells Many per lpf (None-Few) H 07/20/17 23:00
[2017-07-21 01:13] LABS: Amphetamine Screen,Urine Negative ng/mL (Cutoff=1000); Barbiturate Screen,Urine Negative ng/mL (Cutoff=200); Benzodiazepines Screen,Urine Negative ng/mL (Cutoff=200); Cannabinoid Screen,Urine Negative ng/mL (Cutoff = 50); Cocaine Screen,Urine Negative ng/mL (Cutoff= 300); Opiate Screen,Urine Negative ng/mL (Cutoff=300); Phencyclidine Screen,Urine Negative ng/mL (Cutoff=25)
== END 2017-07-21 00:55 | disposition home or self-care (01) ==
LOC: 1NENULAB
PROVIDERS: ADMIT Student in an Organized Health Care Education/Training Program; ATTEND Student in an Organized Health Care Education/Training Program

== ENCOUNTER 2017-07-21 14:55 | Observation (INO) ==
--- NOTE | 2017-07-21 15:39 | OB/GYN Progress Note ---
Date of Encounter: 07/21/17 Time of Encounter: 15:30 - Assessment and Plan (1) 35 to 36 weeks gestation of Current Visit: Yes Status: Acute (2) Premature uterine contractions Current Visit: Yes Status: Acute Labor and delivery for observation heart tracing reassuring Discharged home with labor precautions Follow-up with outpatient OB clinic Subjective - Subjective Principal diagnosis: Contractions Interval history: Ms. Galvan is a 21F at 35 weeks and 1 day presents to labor and delivery for contractions every 3-5 minutes starting last night at 2100. She reports good movement, denies vaginal bleeding, leakage of fluids. Patient reports history of labor on first at 36 weeks and 5 days without any other complications. Current was complicated by "blood clot involving the abdomen" that self-resolved; she denies any other complications. The patient had recent symptoms of nausea and vomiting 3 weeks ago and 3 days ago that resolved with zofran. She denies headaches, vision changes, chest pain, SOB, abdominal pain, dysuria, hematuria, diarhea f/c/n/v. T pallidum: negative Hep B Antigen: NR HIV Ag/Ab: NR Rubella IgG: Positive Trichomonas: Not detected Varicella IgG: Positive Antepartum ROS: movement normal, contractions, no loss of fluid, no vaginal bleeding Objective - Exam FHR: auscultation normal, category 1 FHR comments: Baseline 135 Auscultation: bilateral: normal Abdomen: Present: normal appearance, soft, gravid Uterus: Present: normal, firm Cervical dilation: 1-2 per RN
== END 2017-07-21 16:06 | disposition home or self-care (01) ==
LOC: 1NENULAB
PROVIDERS: ADMIT Obstetrics & Gynecology; ATTEND Obstetrics & Gynecology

== ENCOUNTER 2017-07-27 07:39 | Observation (INO) ==
[2017-07-27 08:36] LABS: Bilirubin,Urine Negative (Negative); Blood,Urine Negative (Negative); Clarity,Urine Cloudy (Clear); Color,Urine Dark Yellow (Yellow); Glucose,Urine (UA) Normal (Normal); Ketones,Urine Negative (Negative); Leukocyte Esterase,Urine Trace (Negative); Nitrite,Urine Negative (Negative); Protein,Urine 30 mg/dL (Neg-Trace); Specific Gravity,Urine 1.025 (1.010-1.025); Urobilinogen,Urine Normal (Normal)
[2017-07-27 08:38] LABS: Bacteria,Urine Few per hpf (None-Few); Hyaline Casts,Urine None Seen per lpf (None-Few); Squamous Epithelial Cell,Urine Many per lpf (None-Few); WBC,Urine 15-30 per hpf (0-3)
[2017-07-27 10:03] LABS: Amphetamine Screen,Urine Negative ng/mL (Cutoff=1000); Barbiturate Screen,Urine Negative ng/mL (Cutoff=200); Benzodiazepines Screen,Urine Negative ng/mL (Cutoff=200); Cannabinoid Screen,Urine Negative ng/mL (Cutoff = 50); Cocaine Screen,Urine Negative ng/mL (Cutoff= 300); Opiate Screen,Urine Negative ng/mL (Cutoff=300); Phencyclidine Screen,Urine Negative ng/mL (Cutoff=25)
--- NOTE | 2017-07-27 10:12 | OB/GYN Progress Note ---
Date of Encounter: 07/27/17 Time of Encounter: 10:10 - Assessment and Plan (1) 36 weeks gestation of Status: Acute (2) Premature uterine contractions Status: Acute PO hydration UA - negative Follow up as scheduled Labor precautions reinforced OK to discharge home Subjective - Subjective Principal diagnosis: contractions Interval history: Pt presents to L&D with c/o contractions happenin every 5 minutes. She reports + FM and denies LOF, vaginal bleeding. Antepartum ROS: movement normal, contractions, no loss of fluid, no vaginal bleeding Objective - Vital Signs Vital Signs: Intake and Output 07/26/17 07/27/17 07/27/17 23:59 07:59 15:59 Other: Weight 104.1 kg Patient Weight 07/27/17 23:59 Weight 104.1 kg - Exam FHR: auscultation normal, category 1 FHR comments: Baseline 140 Moderate variability Accelerations present 15x15 No decelerations FHR category I [place]: ctx q 5-6 minutes Auscultation: bilateral: normal Abdomen: Present: normal appearance, soft, gravid Uterus: Present: normal, firm Cervical dilation: 3 Cervix effacement: 60 station: -2 - Labs Labs: Abnormal lab results Urine Clarity Cloudy (Clear) A 07/27/17 08:15 Urine Protein 30 mg/dL (Neg-Trace) H 07/27/17 08:15 Ur Leukocyte Esterase Trace (Negative) H 07/27/17 08:15 Urine Microscopic RBC 5-15 per hpf (0-3) H 07/27/17 08:15 Urine Microscopic WBC 15-30 per hpf (0-3) H 07/27/17 08:15 Ur Squamous Epith Cells Many per lpf (None-Few) H 07/27/17 08:15
== END 2017-07-27 09:58 | disposition home or self-care (01) ==
LOC: 1NENULAB
PROVIDERS: ADMIT Obstetrics & Gynecology; ATTEND Obstetrics & Gynecology

== ENCOUNTER 2018-10-29 11:31 | Observation (INO) ==
[2018-10-29 12:19] LABS: Basophils % 0.3 %; Eosinophils # 0.1 K/mcL (0.0-0.6); Eosinophils % 1.1 %; Hematocrit 38.5 % (35.3-44.9); Hemoglobin 12.7 g/dL (11.5-15.4); Immature Granulocytes % 0.5 % (0-4); Lymphocytes # 1.8 K/mcL (0.6-4.6); Lymphocytes % 16.4 %; Mean Corpuscular Hemoglobin 29.6 pg (28.0-33.3); Mean Corpuscular Volume 89.7 fL (83.0-100.0); Mean Platelet Volume 10.2 fL (9.4-12.4); Monocytes # 0.8 K/mcL (0.0-1.3); Monocytes % 7.3 %; Platelet Count 300 K/mcL (140-400); Red Blood Count 4.29 M/mcL (3.82-4.97); Red Cell Distribution Width 14.2 % (11.5-14.5); Segmented Neutrophils % 74.4 %; White Blood Count 10.8 K/mcL (4.3-11.1)
[2018-10-29 12:26] LABS: Protein/Creatinine Ratio,Urine 1.04 mg/mg (0.00-0.20)
[2018-10-29 12:27] LABS: Amphetamine Screen,Urine Negative ng/mL (Cutoff=1000); Barbiturate Screen,Urine Negative ng/mL (Cutoff=200); Benzodiazepines Screen,Urine Negative ng/mL (Cutoff=200); Cannabinoid Screen,Urine Negative ng/mL (Cutoff = 50); Cocaine Screen,Urine Negative ng/mL (Cutoff= 300); Opiate Screen,Urine Negative ng/mL (Cutoff=300); Phencyclidine Screen,Urine Negative ng/mL (Cutoff=25)
[2018-10-29 12:39] LABS: Alanine Aminotransferase 16 Units/L (7-52); Aspartate Amino Transferase 22 Units/L (13-39); BUN/Creatinine Ratio 13 (6-26); Blood Urea Nitrogen 6 mg/dL (6-20); Lactate Dehydrogenase 116 Units/L (140-271); Uric Acid 6.2 mg/dL (2.3-7.6); eGFR For African Americans > 60 (> 60); eGFR For Non-African Americans > 60 (> 60)
[2018-10-29 13:04] LABS: Bilirubin,Urine Negative (Negative); Blood,Urine Negative (Negative); Clarity,Urine Cloudy (Clear); Color,Urine Dark Yellow (Yellow); Glucose,Urine (UA) 100 mg/dL (Normal); Ketones,Urine Negative (Negative); Leukocyte Esterase,Urine Small (Negative); Nitrite,Urine Positive (Negative); Protein,Urine 100 mg/dL (Neg-Trace); Specific Gravity,Urine > 1.030 (1.010-1.025); Urobilinogen,Urine Normal (Normal)
[2018-10-29 13:06] LABS: Bacteria,Urine Many per hpf (None-Few); Hyaline Casts,Urine None Seen per lpf (None-Few); Squamous Epithelial Cell,Urine Many per lpf (None-Few); WBC,Urine 30-50 per hpf (0-3)
[2018-10-29 13:22] LABS: RBC,Urine 0-3 per hpf (0-3)
--- NOTE | 2018-10-29 14:49 | OB/GYN Progress Note ---
Date of Encounter: 10/29/18 Time of Encounter: 14:41 - Assessment and Plan (1) Acute cystitis during in third trimester Current Visit: Yes Status: Acute UA positive nitrites, WBC's, leukocytes. Rx keflex sent. (2) Elevated blood pressure affecting in third trimester, antepartum Current Visit: Yes Status: Acute BP's ranging from normal to mild range in triage. No s/sx preeclampsia. Labs WNL except UPC 1.04. Suspect UPC is elevated secondary to UTI. Discharge home with preeclampsia precations. Follow-up tomorrow for BP check in office. (3) 36 weeks gestation of Current Visit: No Status: Acute Subjective - Subjective Principal diagnosis: HTN Interval history: 23 year-old presenting from office for elevated blood pressure at 36w2d. She was in the office today for NST and visit for GDMA1. Her blood pressures in office today were 160/90, 140/80, 142/82. She denies MERINO, vision changes, or epigastric pain. Good FM. No leaking or bleeding. She does report some urinary frequency and some discomfort with voiding. Objective - Vital Signs Vital Signs: Intake and Output 10/28/18 10/29/18 10/29/18 23:59 07:59 15:59 Other: Weight 105.5 kg Patient Weight 10/29/18 23:59 Weight 105.5 kg - Exam FHR: category 1 FHR comments: 140 BPM, reactive NST Auscultation: bilateral: normal Abdomen: Present: soft, gravid Uterus: Present: normal Cervical dilation: 2-3/50/-2 - Labs Labs: Abnormal lab results 0.45 mg/dL (0.60-1.20) L 10/29/18 12:00 116 Units/L (140-271) L 10/29/18 12:00 Cloudy (Clear) A 10/29/18 12:50 Ur Specific [place] > 1.030 (1.010-1.025) H 10/29/18 12:50 100 mg/dL (Neg-Trace) H 10/29/18 12:50 100 mg/dL (Normal) H 10/29/18 12:50 Positive (Negative) A 10/29/18 12:50 Ur Leukocyte Esterase Small (Negative) H 10/29/18 12:50 30-50 per hpf (0-3) H 10/29/18 12:50 Ur Squamous Epith Cells Many per lpf (None-Few) H 10/29/18 12:50 Many per hpf (None-Few) H 10/29/18 12:50 Ur Culture Indicated? YES (NO) A 10/29/18 12:50 Protein/Creatinin Ratio 1.04 mg/mg (0.00-0.20) H 10/29/18 12:00 179 mg/dL (1-14) H 10/29/18 12:00
== END 2018-10-29 14:46 | disposition home or self-care (01) ==
LOC: 1NENULAB
PROVIDERS: ADMIT Registered Nurse; ATTEND Registered Nurse

== ENCOUNTER 2018-11-03 13:49 | Inpatient (IN) ==
--- NOTE | 2018-11-03 11:51 | OB/GYN History & Physical ---
Date of Encounter: 11/03/18 Time of Encounter: 11:49 Assessment and Plan (1) 37 weeks gestation of Current visit: Yes Status: Acute Pt at 37 weeks EGA presents in early labor after spontaneous rupture of membranes this morning. She reports onst of uc's that are mild, but getting progressively stronger since that time. has been complicated by gestatiional DM and she has been followed by [facility] and her glucoregulation is excellent. Upon arrival she has obvious ROM and is nitrazine positive. Will admit to labor and delivery and monitor uc's. , will augment labor if needed. (2) Gestational diabetes Current visit: Yes Status: Acute Qualifiers: Gestational diabetes mellitus control: diet-controlled Trimester: third trimester Qualified Code(s): O24.410 - Gestational diabetes mellitus in , diet controlled History of Present Illness Chief complaint: rupture of membranes HPI: Ms. Galvan is a 23 year old female female presents at 37 weeks EGA with report rupture of membranes this morning with several gushes of fluid. She is now having progressively stronger uc's. She reports +GFM, she has no other c/o. Pt with gestational diabetes but has required to meds for glucoregulation b/c her accu checks have been excellent. She is followed by [facility]. Past Med Surg Social Fam HX - Past Medical History Source: patient, old records reviewed Medical history: no medical history Psychiatric history: no psych history - Past Surgical History Surgical History: other Additional surgical history: tonsillectomy - Social History Smoking Status: Former smoker Smokeless Tobacco Status: No Alcohol use: none Drug use: none - Family History Mother Adopted: No Family Member Ethnicity: Non- Living Status: Still Living Hx Family Cardiac Disorders: No Hx Family Respiratory Disorders: No Hx Family Cancer: Yes (Jaw & Bone) Hx Family GI Disorders: No Hx Family Endocrine Disorder: No Hx Family Neuromuscular Disorders: No Hx Family Neurologic Disorders: No Hx Family HEENT Disorders: No Hx Family Autoimmune Disorders: No Hx Family Medical Disorders: Yes (blood clots) Obstetrical History - Pregnancies : 3 Para: 2 Medications and Allergies Vit/FA 1 each PO DAILY tablet 07/31/17 [Rx] Cephalexin [Keflex] 500 mg PO BID #14 capsule 10/29/18 [Rx] Ferrous Sulfate [Iron] 325 mg PO DAILY 10/29/18 [History] Allergy/AdvReac Type Severity Reaction Status Date / Time azithromycin [From Zithromax] Allergy Rash Verified 07/28/17 00:13 Exam - Constitutional Constitutional: well developed - HEENT HEENT: EOMI - Neck Neck exam: full ROM - Lungs Respiratory exam: CTAB - Cardiovascular Cardiovascular exam: RRR - Abdomen Abdomen: Present: gravid - Extremities Extremities exam: full ROM Deep Tendon Reflex Grade: 2+ Normal - Cervix Dilation: 3 Effacement: 80 Station: -2 Results All other labs normal.
[~2018-11-03 13:49] MED LIST changes: +*HR* Nalbuphine 10 MG/ML AMPUL IVP PRN; +Lidocaine 1% 20 ML MDV INFILT PRN; +Metoclopramide 10 MG/2 ML VIAL IVP PRN
[2018-11-03 14:08] LABS: Basophils % 0.3 %; Eosinophils # 0.1 K/mcL (0.0-0.6); Eosinophils % 0.8 %; Hematocrit 38.7 % (35.3-44.9); Immature Granulocytes % 0.4 % (0-4); Lymphocytes # 1.6 K/mcL (0.6-4.6); Lymphocytes % 13.3 %; Mean Corpuscular HGB Conc 33.6 g/dL (31.6-35.5); Mean Corpuscular Hemoglobin 29.7 pg (28.0-33.3); Mean Corpuscular Volume 88.4 fL (83.0-100.0); Mean Platelet Volume 10.9 fL (9.4-12.4); Monocytes # 0.8 K/mcL (0.0-1.3); Monocytes % 6.6 %; Neutrophils # 9.4 K/mcL (1.6-8.9); Platelet Count 264 K/mcL (140-400); Red Blood Count 4.38 M/mcL (3.82-4.97); Red Cell Distribution Width 13.8 % (11.5-14.5); Segmented Neutrophils % 78.6 %
[2018-11-03] MEDS ORDERED: Bupivacaine-MPF 0.25% 10 ML VIAL EP ONE (16:08)
[2018-11-03] MEDS ORDERED: *HR* FentaNYL (PF) 100 MCG/2 ML VIAL EP ONE (16:08)
[2018-11-03] MEDS ORDERED: *HR* FentaNYL (PF) 100 MCG/2 ML VIAL ONE (16:11)
[2018-11-03] MEDS ORDERED: Bupivacaine-MPF 0.25% 10 ML VIAL ONE (16:11)
[2018-11-03] MEDS ORDERED: Epidural Premix (fent/bupiv) 110 ML EP SCH (16:15)
[2018-11-03] MEDS: Ringers Solution, Lactated 1,000 ML IVC SCH ×2 (16:17→18:48)
--- NOTE | 2018-11-03 16:30 | Anesthesia Evaluation PreOp ---
Date of Encounter: 11/03/18 Time of Encounter: 16:28 - Past History Planned Operation: AIMEE Cardiac History: Denies any Significant Hx Pulmonary History: Former smoker, Pack/yr (5), Smoking Cessation (02/2018) EVALUATOR History: Denies Any Significant HX Other Medical History: Other (diet-controlled gestational DM) Anesthesia History: No Prior Anesthetic Complications (denies personal and family h/o GA complications), Past Anesthesia (CLEx2--no issues; tonsillectomy) : Yes Alcohol Use: none Drug use: none Medications and Allergies Vit/FA 1 each PO DAILY tablet 07/31/17 [Rx] Cephalexin [Keflex] 500 mg PO BID #14 capsule 10/29/18 [Rx] Ferrous Sulfate [Iron] 325 mg PO DAILY 10/29/18 [History] Allergy/AdvReac Type Severity Reaction Status Date / Time azithromycin [From Zithromax] Allergy Rash Verified 07/28/17 00:13 - Meds/Allergy Pre-op Review Medications Reviewed: Yes Allergies Reviewed: Yes Beta Blockers on Current Med List: No Anesthesia Results - Labs 11/03/18 11:25 Anesthesia Exam 120/63, HR 85 O2 Sat Height 1.63 m Height 1.63 m Weight 106.3 kg Weight 106.3 kg NPO (# of Hours): solids > 8hrs - HEENT Pupil (Motor): Pupils equal Mallampati: I Teeth: Normal Oral Opening: Greater than 3 - EVALUATOR LOC: Oriented EVALUATOR Motor: Normal RUE, Normal LUE, Normal RLE, Normal LLE, Normal Face EVALUATOR Sensory: Normal: RUE, LUE, RLE, LLE, Face - Cardiac Rhythm: Regular Murmur: None - Pulmonary Breath Sounds: bilateral Clear Respiratory Effort: Symmetrical Anesthesia Assess/Plan ASA Score: 3 (morbid obesity) Level of consciousness: Cooperative, Oriented, Tranquil Anesthetic Plan: Epidural Reason for No Neuroaxial/Regional Block: Other Autologous Blood: No Monitoring Plan: Standard Monitors
--- NOTE | 2018-11-03 16:57 | Anesthesia Procedures ---
Date of Encounter: 11/03/18 Time of Encounter: 16:20 Procedures: Anesthesia - Epidural/Spinal Patient ID/Chart reviewed: Yes Patient examined: Yes OB Eval: Gestational age: 37 weeks 0 days OB Eval: : 3 OB Eval: Hx Para: 2 OB Eval: Contractions: Non-stressed pattern Consent Obtained: Yes Supplemental Oxygen: None/Room Air Site Prep: Aseptic Technique, Sterile prep and drape, 0.5% Chlorhexidine/Alcohol Patient position: upright Local Anesthetic: Lidocaine 1% Amount of Local Anesthetic used: 3 Touhy Needle Gauge: 18 Touhy Needle Depth (cm): 6 Catheter Depth at Skin (cm): 11 Test Dose (1.5% Lido + Epi): Volume given (mls): 5 Test Dose Result: Negative Loading Dose: 0.25% Marcaine (mls): 5 Loading Dose: Fentanyl (mcg): 100 Loading Dose Administered: Thru Catheter Infusion Med: 0.125% Bupivacaine w/ 2 mcg/ml Fentanyl Infusion Rate (mls/hr): 14 (w/ demand bolus of 5mL q30min PRN) Catheter Secured in Place: Tegaderm, Tape Interspace Used: L4-L5 Loss of Resistance (SHAYY): Yes Blood: No CSF: No Paresthesia: No Procedure: successful on 1st attempt; patient tolerated procedure well; VSS Vitals + FHT's: see [facility] electronic records for VS entry
[2018-11-03] MEDS ORDERED: Oxytocin 20 units/ LR 1000 mL 20 UNIT/1,000 ML BAG IVC SCH ×2 (17:15→23:06)
--- NOTE | 2018-11-03 19:04 | OB Labor Progress Note ---
Date of Encounter: 11/03/18 Time of Encounter: 19:02 Labor Progress Note - Subjective Subjective: Pt comfortable with epidural - Cervix Cervix: 5/80/-2 at 16:07 - Heart Tones Heart Tones: RNST with early decels - [place]: uc's q 4 min - Interventions Interventions: cont pitocin - Plan Plan: Expect
--- NOTE | 2018-11-03 20:46 | OB/GYN Procedure Note ---
Delivery - Delivery Date: 11/03/18 Provider: Eduardo Yepez Delivery induction: none Delivery augmentation: pitocin Delivery monitor: external FHT, external uterine Anesthesia: epidural Quantitated Blood Loss: 100 - Infant (s) A Infant Delivery Date: 11/03/18 Infant Delivery Time: 20:19 Presentation: vertex Position: ERIKA Route of delivery: Gender: Male Viability: Viable Pounds: 8 Ounces: 2 at 1 minute: 6 at 5 mins: 9 Shoulder Dystocia: not encountered Specimens collected: cord blood Placenta: spontaneous Cord: 3 umbilical vessels, delivered through nuchal - Repair Episiotomy: none Laceration Description: Perineal - 1st Degree - Complications Delivery complications: none - Disposition Mom disposition: stable in LDR [place] disposition: stable in LDR - Comments Comments: Pt is s/p of liveborn male inant weighing 8lb 2 oz with apgars 6 at 1 min and 9 at 5 min. was delivered with nuchal cord x 1 and compound delivery with forearm and fist delivering alongside the shoulder. There was no dystocia. We had spont delivery of normal placenta with 3 vc. There was 1st degree laceration repaired with 3-0 Vicryl suture. EBL 100 cc mother and infant recovered in LDR.
[2018-11-03] MEDS ORDERED: Acetaminophen 325 MG TABLET PO PRN (23:06)
[2018-11-03] MEDS ORDERED: Measles/Mumps/Rubella Vacc 0.5 ML VIAL SQ PRN (23:06)
[2018-11-03] MEDS ORDERED: Rho Immune Globulin 1,500 UNIT SYRINGE IM PRN (23:06)
[2018-11-03] MEDS ORDERED: Oxytocin 20 units/ LR 1000 mL 20 UNIT/1,000 ML BAG IVC ONE (23:06)
[2018-11-04] MEDS: Ibuprofen 600 MG TABLET PO PRN ×2 (01:04→08:15)
[2018-11-04] MEDS: cephALEXin 500 MG CAPSULE PO SCH ×3 (01:06→20:04)
[2018-11-04 07:58] LABS: Basophils % 0.3 %; Eosinophils # 0.1 K/mcL (0.0-0.6); Hematocrit 35.1 % (35.3-44.9); Hemoglobin 11.5 g/dL (11.5-15.4); Immature Granulocytes % 0.4 % (0-4); Lymphocytes # 1.4 K/mcL (0.6-4.6); Lymphocytes % 11.8 %; Mean Corpuscular HGB Conc 32.8 g/dL (31.6-35.5); Mean Corpuscular Hemoglobin 29.5 pg (28.0-33.3); Mean Platelet Volume 10.2 fL (9.4-12.4); Monocytes # 0.8 K/mcL (0.0-1.3); Monocytes % 6.9 %; Neutrophils # 9.1 K/mcL (1.6-8.9); Platelet Count 200 K/mcL (140-400); Segmented Neutrophils % 79.6 %; White Blood Count 11.4 K/mcL (4.3-11.1)
[2018-11-04] MEDS: Prenatal Vit/FA 1 EACH TABLET PO SCH (08:15)
--- NOTE | 2018-11-04 08:20 | OB/GYN Progress Note ---
Date of Encounter: 11/04/18 Time of Encounter: 08:17 - Assessment and Plan (1) Normal spontaneous vaginal delivery Current Visit: Yes Status: Acute Plan for discharge tomorrow. Continue routine post care. Encouraged but she has no interest because she thinks she cannot sustain it due to her work. Will complete consent for interval tubal ligation. (2) Urinary tract infection Current Visit: Yes Status: Acute Continue last day of Keflex. Qualifiers: Urinary tract infection type: acute cystitis Hematuria presence: without hematuria Qualified Code(s): N30.00 - Acute cystitis without hematuria Subjective - Subjective Principal diagnosis: s/p spontaneous vaginal delivery Interval history: 23yo ppd#1 s/p after PROM w/ Pit augmentation. She had a laceration repair. Her son is doing well. She is bottle feeding and would like him to be circumcised today. She would like to stay until tomorrow morning. She is on her last day of Keflex for a UTI and her sxs of dysuria are improved. She wants to sign the state consents for an interval tubal ligation. She was planning to do this at her next visit. Patient reports: appetite normal, voiding normally, pain well controlled, ambulating normally, no dizzy ambulation : doing well (Pt denies f/c, cp, sob, or calf pain. lochia is light. no perineal pain.), bottle feeding Objective - Latest Vital Signs Latest vital signs: Vital Signs Temp Pulse Resp BP Pulse Ox 11/04/18 07:47 97.4 F L 84 18 132/87 97 11/04/18 01:00 98.8 F 108 16 129/73 97 11/03/18 23:50 98.7 F 110 16 126/77 98 11/03/18 22:40 97.9 F 99 1 142/83 98 Intake and Output 11/03/18 11/04/18 11/04/18 23:59 07:59 15:59 Intake Total 1000 / 1000 Output Total 325 / 325 400 / 400 Balance 675 / 675 -400 / -400 Intake: IV Fluids 1000 / 1000 Lactated Ringers 1,000 ML @ 125 1000 / 1000 mls/hr IVC .Q8H GUY Rx#: [id number] Output: Urine 400 / 400 Estimated Blood Loss 100 / 100 Catheter 225 / 225 - Exam Lungs: bilateral: normal Chest: Normal S1, Normal S2 Extremities: Present: normal. Absent: tenderness, edema Abdomen: Present: soft. Absent: distention, tenderness Uterus: Present: firm. Absent: tenderness (perineal repair intact, lochia light) Uterus Position: 1 Finger Above Umbilicus - Labs Labs: Laboratory Results - last 24 hr 11/03/18 11/04/18 11:25 07:46 WBC 12.0 H 11.4 H RBC 4.38 3.90 Hgb 13.0 11.5 D Hct 38.7 35.1 L MCV 88.4 90.0 MCH 29.7 29.5 MCHC 33.6 32.8 RDW 13.8 14.0 Plt Count 264 200 MPV 10.9 10.2 Immature Gran % 0.4 0.4 Seg Neutrophils % 78.6 79.6 Lymphocytes % 13.3 11.8 Monocytes % 6.6 6.9 Eosinophils % 0.8 1.0 Basophils % 0.3 0.3 Neutrophils # 9.4 H 9.1 H Lymphocytes # 1.6 1.4 Monocytes # 0.8 0.8 Eosinophils # 0.1 0.1 Basophils # 0.0 0.0
[2018-11-05] MEDS: Prenatal Vit/FA 1 EACH TABLET PO SCH (07:37)
[2018-11-05] MEDS: cephALEXin 500 MG CAPSULE PO SCH (07:38)
[2018-11-05 07:52] VITALS: BP 119/72
--- NOTE | 2018-11-05 09:27 | Discharge Summary ---
Date of Encounter: 11/05/18 Time of Encounter: 09:25 - Discharge Diagnosis (1) Vaginal delivery Priority: Primary Status: Acute Comments: Patient meeting day 2 milestones. Pain well-controlled with prescribed medications. Voiding without difficulty, tolerating regular diet, bleeding light. No bowel movement yet. Anticipate discharge today (2) First degree perineal laceration during delivery Priority: Secondary Status: Acute Comments: Motrin, Dermoplast, ice packs as needed for discomfort. - Discharge Medications Prescriptions: New Acetaminophen [Tylenol] 650 mg PO Q6HR PRN tablet PRN Reason: Mild Pain Ibuprofen [Motrin] 600 mg PO Q6HR PRN #60 tablet PRN Reason: Cramping Docusate [Colace] 100 mg PO BID capsule Continued Vit/FA 1 each PO DAILY tablet Cephalexin [Keflex] 500 mg PO BID #14 capsule Discontinued Ferrous Sulfate [Iron] 325 mg PO DAILY Home Medications: Vit/FA 1 each PO DAILY tablet 07/31/17 [Rx] Cephalexin [Keflex] 500 mg PO BID #14 capsule 10/29/18 [Rx] Acetaminophen [Tylenol] 650 mg PO Q6HR PRN tablet 11/05/18 [Rx] Docusate [Colace] 100 mg PO BID capsule 11/05/18 [Rx] Ibuprofen [Motrin] 600 mg PO Q6HR PRN #60 tablet 11/05/18 [Rx] Allergies/Adverse Reactions: Allergy/AdvReac Type Severity Reaction Status Date / Time azithromycin [From Zithromax] Allergy Rash Verified 07/28/17 00:13 Data Procedures and tests throughout hospitalization: Laboratory Tests 11/03/18 11/04/18 11:25 07:46 WBC 12.0 H 11.4 H RBC 4.38 3.90 Hgb 13.0 11.5 D Hct 38.7 35.1 L MCV 88.4 90.0 MCH 29.7 29.5 MCHC 33.6 32.8 RDW 13.8 14.0 Plt Count 264 200 MPV 10.9 10.2 Immature Gran % 0.4 0.4 Seg Neutrophils % 78.6 79.6 Lymphocytes % 13.3 11.8 Monocytes % 6.6 6.9 Eosinophils % 0.8 1.0 Basophils % 0.3 0.3 Neutrophils # 9.4 H 9.1 H Lymphocytes # 1.6 1.4 Monocytes # 0.8 0.8 Eosinophils # 0.1 0.1 Basophils # 0.0 0.0 Date of admission: 11/03/18 13:49 Primary care physician: Calvin Chung DO Consults: 11/03/18 23:06 Consult to Workers Compensation Analyst [CONS] Routine Comment: Vaginal delivery, consult needed Discharging clinician: Zahraa Blanchard Anticipated date of discharge: 11/05/18 - Patient Status Disposition: Home, Self-Care Condition: Good Functional capacity at discharge: independent ambulation Overall status at discharge: patient is progressing back to baseline - Discharge Instructions Follow Up With: Calvin Chung DO [Primary Care Provider] - Hamilton Varela DO [Partnered Physician] - - Diet and Activity Activity: resume usual activities as tolerated Diet: regular diet Hospital Course Reason for admission: rupture of membranes Delivery: Episiotomy: none Laceration: 1st degree Other procedures: none complications: perineal laceration Discharge diagnosis: IUP at term delivered [place] baby: male Hospital course: Delivery Date: 11/03/18 Provider: Eduardo Yepez Delivery induction: none Delivery augmentation: pitocin Delivery monitor: external FHT, external uterine Anesthesia: epidural Quantitated Blood Loss: 100 - Infant (s) Infant A Delivery Date: 11/03/18 Delivery Time: 20:19 Presentation: vertex Position: ERIKA Route of delivery: Gender: Male Viability: Viable Pounds: 8 Ounces: 2 at 1 minute: 6 at 5 mins: 9 Shoulder Dystocia: not encountered Specimens collected: cord blood Placenta: spontaneous Cord: 3 umbilical vessels, delivered through nuchal - Repair Episiotomy: none Laceration Description: Perineal - 1st Degree - Complications Delivery complications: none - Disposition Mom disposition: stable in LDR [place] disposition: stable in LDR - Comments Comments: Pt is s/p of liveborn male inant weighing 8lb 2 oz with apgars 6 at 1 min and 9 at 5 min. Infant was delivered with nuchal cord x 1 and compound delivery with forearm and fist delivering alongside the shoulder. There was no dystocia. We had spont delivery of normal placenta with 3 vc. There was 1st degree laceration repaired with 3-0 Vicryl suture. EBL 100 cc mother and recovered in LDR. Time Attestation: Total time spent providing and/or coordinating discharge services: Time Spent: Less than 30 minutes Exam - Constitutional Vitals: Temp Pulse Resp BP Pulse Ox 98.0 F 75 16 119/72 98 11/05/18 07:51 11/05/18 07:51 11/05/18 07:51 11/05/18 07:51 11/04/18 19:50 General appearance IM: A&O X 3, no acute distress - Respiratory Respiratory exam: Present: CTAB. Absent: respiratory distress - Cardiovascular Cardiovascular exam IM: Present: RRR, +S1, +S2. Absent: irregular rhythm - GI/Abdominal GI/Abdominal exam IM: normal bowel sounds, soft - Rectal Rectal exam: deferred - External exam: normal external exam Uterine Tone: Firm Uterus Position: At Umbilicus - Extremities Exam Extremities exam IM: Present: full ROM, normal capillary refill, normal inspection, warm. Absent: calf tenderness - Neurological Exam Neurological exam: alert, normal gait, oriented X3
[2018-11-05] MEDS ORDERED: Benzocaine/Menthol 56 GM AEROSOL SPRAY TP PRN (09:38)
[2018-11-05] MEDS: Ibuprofen 600 MG TABLET PO PRN (09:59)
== END 2018-11-05 11:45 | disposition home or self-care (01) | DRG 560 ==
LOC: 1NENULAB → 1NENUOBS 22:35
PROVIDERS: ADMIT Obstetrics & Gynecology; ATTEND Obstetrics & Gynecology